=== PATIENT | female | born 1975 | race Caucasian/White ===

== ENCOUNTER 2017-07-15 16:21 | Inpatient (IN) ==
[2017-07-15 17:08] LABS: Basophils % 0.3 % (0.0-0.8); Eosinophils # 0.1 10*3/uL (0.0-0.87); Eosinophils % 0.9 % (0.00-10.9); Hematocrit 27.8 VOL% (35.7-47.0); Hemoglobin 8.9 GM/DL (12.0-16.0); Immature Granulocytes Absolute 0.44 #; Lymphocytes % 18.5 % (21.3-54.2); Mean Corpuscular Hemoglobin 25 PG (27-34); Mean Corpuscular Volume 77.7 FL (87-102); Mean Platelet Volume 9.7 FL (9.6-12.0); Monocytes # 0.8 10*3/uL (0.11-0.8); Monocytes % 7.2 % (1.7-12.7); Neutrophils # 7.6 10*3/uL (1.4-7.4); Neutrophils % 69.1 % (38.7-73.9); Platelet Count 168 T/CUMM (130-400); Red Blood Count 3.58 MC/CUMM (3.8-5.5); Red Cell Distribution Width 15.8 % (9.3-17.3); White Blood Count 10.9 T/CUMM (4-12)
[2017-07-15 17:14] LABS: Apearance,Urine Slightly Hazy (Clear); Bacteria,Urine Occasional /HPF (Few); Bilirubin,Urine Negative (Negative); Blood, Urine Negative (Negative); Glucose,Urine (UA) Negative (Negative); Ketones,Urine Negative (Negative); Mucus,Urine Occasional /LPF (Occasional); Nitrite,Urine Negative (Negative); Protein,Urine 30 MG/DL; RBC,Urine 1 /HPF (0-4); Squamous Epithelial Cell,Urine Few /HPF (0-10); Urine Color Yellow (Yellow); Urine Specific Gravity 1.026 (1.001-1.035); Urine Urobilinogen < 2.0 EU/DL (0.2-1.0); WBC,Urine 2 /HPF (0-6)
[2017-07-15 17:22] LABS: INR 0.9; PT Patient Result 9.3 SECS; Partial Thromboplastin Time 26.8 SECS (0-40)
[2017-07-15 17:49] LABS: Alanine Aminotransferase < 6 U/L (13-56); Albumin 2.4 G/DL (3.4-5.0); Alkaline Phosphatase 146 U/L (45-117); Aspartate Amino Transferase 13 U/L (0-37); Bilirubin,Direct < 0.100 MG/DL (0.0-0.20); Bilirubin,Total < 0.39 MG/DL (0.2-1.0); Blood Urea Nitrogen 9 MG/DL (7-18); Calcium 8.2 MG/DL (8.5-10.1); Glucose 79 MG/DL (74-106); Osmolality,Calculated 274.5 MOS/KG (273-304); Potassium 4.2 MMOL/L (3.5-5.1); Sodium 139 MMOL/L (136-145); Total Protein 6.2 G/DL (6.4-8.3); Uric Acid 5.2 MG/DL (2.6-6.0)
[2017-07-15] MEDS ORDERED: BETAMETH SODIUM PHOS/ACETATE 30 MG/5 ML VIAL IM SCH (20:00)
[2017-07-15] MEDS: METHYLDOPA 500 MG TABLET PO SCH (20:05)
[2017-07-15] MEDS: LACTATED RINGERS 1,000 ML IV SCH (20:25)
[2017-07-15] MEDS ORDERED: hydrALAZINE 20 MG/1 ML VIAL IV PRN (20:51)
[2017-07-15] MEDS: ALUMINUM/MAGNES/SIMETH MAX STR 30 ML UDCUP PO PRN (21:00)
[2017-07-15] MEDS ORDERED: MAGNESIUM SULF DRIP 40 GM/1,000 ML ML IV SCH (21:00)
[2017-07-15] MEDS ORDERED: MAGNESIUM SULF RIDER 4 GM in PREMIX 1 EACH IV ONE (21:30)
[2017-07-15] MEDS: ONDANSETRON 4 MG/2 ML VIAL IV PRN (22:15)
[2017-07-15] MEDS: BUTORPHANOL 1 MG/ML VIAL IV PRN (22:15)
[2017-07-15 22:16] LABS: Apearance,Urine CLEAR (Clear); Bilirubin,Urine Negative (Negative); Blood, Urine Negative (Negative); Glucose,Urine (UA) Negative (Negative); Ketones,Urine Negative (Negative); Nitrite,Urine Negative (Negative); Protein,Urine Negative; Squamous Epithelial Cell,Urine Occasional /HPF (0-10); Urine Color Straw (Yellow); Urine Specific Gravity 1.009 (1.001-1.035); Urine Urobilinogen < 2.0 EU/DL (0.2-1.0); WBC,Urine <1 /HPF (0-6)
[2017-07-16] MEDS: hydrALAZINE 25 MG TABLET PO SCH ×5 (00:32→23:36)
[2017-07-16] MEDS: METHYLDOPA 500 MG TABLET PO SCH ×5 (00:49→23:35)
[2017-07-16] MEDS: ALUMINUM/MAGNES/SIMETH MAX STR 30 ML UDCUP PO PRN ×3 (01:51→21:56)
[2017-07-16] MEDS: BUTORPHANOL 1 MG/ML VIAL IV PRN ×2 (02:20→08:00)
[2017-07-16] MEDS ORDERED: ACETAMINOPHEN 500 MG TABLET PO PRN (05:47)
[2017-07-16] MEDS: LACTATED RINGERS 1,000 ML IV SCH ×3 (06:17→23:33)
[2017-07-16] MEDS: ONDANSETRON 4 MG/2 ML VIAL IV PRN (08:00)
[2017-07-16] MEDS: lamoTRIgine 100 MG TABLET PO SCH ×2 (09:30→20:56)
[2017-07-16] MEDS: SERTRALINE 100 MG TABLET PO SCH ×2 (09:31→20:56)
[2017-07-16] MEDS ORDERED: BETAMETH SODIUM PHOS/ACETATE 30 MG/5 ML VIAL IM ONE (10:00)
[2017-07-16] MEDS ORDERED: hydrOXYzine HCL 25 MG/1 ML VIAL IM PRN (11:33)
[2017-07-16] MEDS ORDERED: PROMETHAZINE 25 MG/1 ML VIAL IM ONE (11:33)
[2017-07-16] MEDS ORDERED: FAMOTIDINE 20 MG/2 ML VIAL IV ONE (11:33)
[2017-07-16] MEDS ORDERED: CITRIC ACID/SODIUM CITRATE 30 ML UDCUP PO ONE (11:33)
[2017-07-16] MEDS ORDERED: diphenhydrAMINE 50 MG/1 ML VIAL IV PRN (11:33)
[2017-07-16] MEDS ORDERED: OXYTOCIN/LR 20 UNIT/1,000 ML BAG IV ONE ×2 (11:35→13:03)
[2017-07-16] MEDS ORDERED: CLINDAMYCIN INJ 900 MG in PREMIX 1 EACH IV ONE (11:35)
[2017-07-16] MEDS ORDERED: DIPH/TET/ACEL PERT BOOSTER VACCINE 0.5 ML VIAL IM ONE (13:03)
[2017-07-16] MEDS ORDERED: BISACODYL 10 MG SUPP RECTAL PRN (13:03)
[2017-07-16] MEDS ORDERED: BENZOCAINE 20%/MENTHOL 0.5% SPRAY 56 GM CAN TOP PRN (13:03)
[2017-07-16] MEDS ORDERED: HYDROCORTISONE 2.5% RECTAL CREAM 30 GM TUBE TOP PRN (13:03)
[2017-07-16] MEDS ORDERED: LANOLIN 50% CREAM 0.3 OZ TUBE TOP PRN (13:03)
[2017-07-16] MEDS ORDERED: ACETAMINOPHEN 325 MG TABLET PO PRN (13:03)
[2017-07-16] MEDS ORDERED: RHO(D) IMMUNE GLOBULIN 300 MCG SYRINGE IM ONE (13:03)
[2017-07-16] MEDS ORDERED: ONDANSETRON 4 MG/2 ML VIAL IV PRN (13:03)
[2017-07-16] MEDS ORDERED: MEASLES/MUMPS/RUBELLA VACCINE 0.5 ML VIAL SUBCUT ONE (13:03)
[2017-07-16] MEDS ORDERED: WITCH HAZEL PADS 100/JAR TOP PRN (13:03)
[2017-07-16] MEDS ORDERED: MIDAZOLAM 2 MG/2 ML VIAL ONE (13:12)
[2017-07-16] MEDS ORDERED: MORPHINE 10 MG/10 ML VIAL ONE (13:12)
[2017-07-16] MEDS ORDERED: HYDROmorphone 2 MG/1 ML VIAL IV PRN (14:10)
[2017-07-16] MEDS ORDERED: MORPHINE PCA 30 MG/30 ML SYRINGE IV ONE (14:40)
[2017-07-16] MEDS ORDERED: NALOXONE 0.4 MG/ML VIAL IV PRN (14:43)
[2017-07-16] MEDS ORDERED: MORPHINE PCA 30 MG/30 ML SYRINGE IV SCH (15:00)
[2017-07-16] MEDS: CLINDAMYCIN INJ 900 MG in PREMIX 1 EACH IV SCH (20:14)
[2017-07-16] MEDS: DOCUSATE SODIUM 100 MG CAPSULE PO SCH (20:56)
[2017-07-16] MEDS ORDERED: lamoTRIgine 100 MG TABLET PO SCH (21:00)
[2017-07-16] MEDS ORDERED: SERTRALINE 100 MG TABLET PO SCH (21:00)
[2017-07-16 21:21] LABS: Basophils % 0.2 % (0.0-0.8); Hematocrit 28.9 VOL% (35.7-47.0); Hemoglobin 9.3 GM/DL (12.0-16.0); Immature Granulocytes % 4.4 %; Immature Granulocytes Absolute 0.87 #; Lymphocytes # 1.1 10*3/uL (1.4-4.0); Lymphocytes % 5.3 % (21.3-54.2); Mean Corpuscular HGB Conc 32.2 GM/DL (32-36); Mean Corpuscular Hemoglobin 25 PG (27-34); Mean Corpuscular Volume 78.1 FL (87-102); Mean Platelet Volume 9.7 FL (9.6-12.0); Monocytes # 0.8 10*3/uL (0.11-0.8); Monocytes % 4.2 % (1.7-12.7); Neutrophils # 17.1 10*3/uL (1.4-7.4); Neutrophils % 85.9 % (38.7-73.9); Platelet Count 216 T/CUMM (130-400); Red Cell Distribution Width 15.8 % (9.3-17.3); White Blood Count 19.9 T/CUMM (4-12)
[2017-07-16 22:26] LABS: Eosinophils 1 % (0-10); Hypochromasia 1+; Lymphocytes 6 % (20-55); Platelet Estimate Normal; Segmented Neutrophils 88 % (50-85); Total Cells Counted 100
[2017-07-17] MEDS: CLINDAMYCIN INJ 900 MG in PREMIX 1 EACH IV SCH (04:07)
[2017-07-17] MEDS: LACTATED RINGERS 1,000 ML IV SCH (05:56)
[2017-07-17 06:39] LABS: Basophils % 0.1 % (0.0-0.8); Hematocrit 27.1 VOL% (35.7-47.0); Hemoglobin 8.7 GM/DL (12.0-16.0); Immature Granulocytes % 4.4 %; Immature Granulocytes Absolute 0.91 #; Lymphocytes # 1.4 10*3/uL (1.4-4.0); Lymphocytes % 6.5 % (21.3-54.2); Mean Corpuscular HGB Conc 32.1 GM/DL (32-36); Mean Corpuscular Hemoglobin 24 PG (27-34); Mean Corpuscular Volume 75.9 FL (87-102); Mean Platelet Volume 9.4 FL (9.6-12.0); Monocytes # 1.1 10*3/uL (0.11-0.8); Monocytes % 5.4 % (1.7-12.7); Neutrophils # 17.3 10*3/uL (1.4-7.4); Neutrophils % 83.6 % (38.7-73.9); Platelet Count 235 T/CUMM (130-400); Red Blood Count 3.57 MC/CUMM (3.8-5.5); Red Cell Distribution Width 15.8 % (9.3-17.3); White Blood Count 20.7 T/CUMM (4-12)
[2017-07-17 07:37] LABS: Band Neutrophils 3 % (0-10); Hypochromasia 1+; Lymphocytes 5 % (20-55); Myelocytes 1 %; Ovalocytes Slight; Platelet Estimate Adequate; Segmented Neutrophils 86 % (50-85); Total Cells Counted 100
[2017-07-17 07:38] LABS: Giant Platelets Few
[2017-07-17] MEDS: METHYLDOPA 500 MG TABLET PO SCH ×3 (08:07→22:56)
[2017-07-17] MEDS: lamoTRIgine 100 MG TABLET PO SCH ×2 (08:55→20:13)
[2017-07-17] MEDS: SERTRALINE 100 MG TABLET PO SCH ×2 (08:55→20:13)
[2017-07-17] MEDS: FUROSEMIDE 40 MG/4 ML VIAL IV SCH (08:57)
[2017-07-17] MEDS: oxyCODONE/ACETAMINOPHEN 5-325 MG TABLET PO PRN ×4 (09:57→22:56)
[2017-07-17] MEDS: MULTIVITAMIN (PRENATAL) TABLET PO SCH (16:46)
[2017-07-17] MEDS: DOCUSATE SODIUM 100 MG CAPSULE PO SCH ×2 (16:47→21:00)
[2017-07-18] MEDS: oxyCODONE/ACETAMINOPHEN 5-325 MG TABLET PO PRN ×4 (04:53→23:52)
[2017-07-18] MEDS: METHYLDOPA 500 MG TABLET PO SCH ×3 (06:45→22:12)
[2017-07-18] MEDS: IBUPROFEN 800 MG TABLET PO PRN ×2 (09:00→20:51)
[2017-07-18] MEDS: DOCUSATE SODIUM 100 MG CAPSULE PO SCH ×2 (09:00→20:52)
[2017-07-18] MEDS: lamoTRIgine 100 MG TABLET PO SCH ×2 (09:01→20:51)
[2017-07-18] MEDS: SERTRALINE 100 MG TABLET PO SCH ×2 (09:01→20:51)
[2017-07-18] MEDS: MULTIVITAMIN (PRENATAL) TABLET PO SCH (09:01)
[2017-07-18] MEDS: FUROSEMIDE 40 MG/4 ML VIAL IV SCH (09:02)
[2017-07-19 08:41] VITALS: BP 127/72
[2017-07-19] MEDS ORDERED: MAGNESIUM HYDROXIDE SUSP 30 ML UDCUP PO PRN (09:17)
[2017-07-19] MEDS: SERTRALINE 100 MG TABLET PO SCH (09:29)
[2017-07-19] MEDS: MULTIVITAMIN (PRENATAL) TABLET PO SCH (09:29)
[2017-07-19] MEDS: lamoTRIgine 100 MG TABLET PO SCH (09:29)
[2017-07-19] MEDS: DOCUSATE SODIUM 100 MG CAPSULE PO SCH (09:29)
[2017-07-19] MEDS ORDERED: METHYLDOPA 250 MG TABLET PO SCH (09:30)
[2017-07-19] MEDS: oxyCODONE/ACETAMINOPHEN 5-325 MG TABLET PO PRN (09:41)
[2017-07-19] MEDS: METHYLDOPA 500 MG TABLET PO SCH (14:16)
== END 2017-07-19 13:45 | disposition home or self-care (01) | DRG 765 ==
LOC: N.LDOUT 16:21 → N.LD 16:22 → N.OB 07-17 11:16
PROVIDERS: ADMIT Specialist; ATTEND Specialist